=== PATIENT | male | born 1945 | race Caucasian/White ===

== ENCOUNTER 2022-02-28 18:14 | Emergency (ER) | payer MEDICARE, BC ==
[2022-02-28 18:19] VITALS: TEMP 98.4
[2022-02-28] MEDS ORDERED: SODIUM CHLORIDE 0.9% 1,000 ML IV ONE (18:31)
[2022-02-28] MEDS ORDERED: KETOROLAC 15 MG/ML 1 ML VIAL IVP STA (18:31)
[2022-02-28] MEDS ORDERED: DIPH,PERTUS(ACELL)TETVAC-LF 0.5 ML VIAL IM ONE (18:38)
[2022-02-28] MEDS ORDERED: NEOMYCIN-BACITRACIN-POLY OINT 14 GM TUBE TOPICAL STA (18:42)
[2022-02-28] MEDS: LACTATED RINGERS 1,000 ML IV SCH ×2 (18:51→20:58)
[2022-02-28 18:56] VITALS: BP 156/86; PULSE 71; RESP 18
[2022-02-28] MEDS ORDERED: HYDROcodone/APAP 7.5-325MG 1 EACH TAB PO ONE (19:17)
[2022-02-28] MEDS ORDERED: ACET/COD 300 MG/30 MG STARTER PACK 6 TAB BTL PO STA (19:46)
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
== END 2022-02-28 21:13 | disposition home or self-care (01) ==
LOC: EC 18:14
DX: T24.201A Burn of second degree of unspecified site of right lower limb, except ankle and foot, initial encounter (principal); Z23 Encounter for immunization; T31.11 Burns involving 10-19% of body surface with 10-19% third degree burns
CPT/HCPCS: 90715; 99282; 90471; 96365; 96375; J0690; J1885